=== PATIENT | female | born 1980 | race Caucasian/White ===

== ENCOUNTER 2018-02-13 14:12 | Outpatient (CLI) | payer OTHER | END 2018-02-13 14:15 | disposition home or self-care (01) | LOC: SONOGRAMA 14:12 | DX: Z34.81 Encounter for supervision of other normal pregnancy, first trimester (principal) ==

== ENCOUNTER → 2018-03-13 | Day surgery (SDC) | payer OTHER ==
[~2018-03-13] MED LIST: MULTI VITAMIN1 EACH PO
== END | disposition home or self-care (01) ==
LOC: CIR.AMB 12:05
DX: O02.1 Missed abortion (principal); Z3A.01 Less than 8 weeks gestation of pregnancy

== ENCOUNTER 2019-04-06 20:38 | Outpatient (CLI) | payer OTHER ==
[2019-04-06] MEDS ORDERED: PRENATAL TABLE1 EACH PO (22:47)
[2019-04-06] MEDS ORDERED: INTEGRA CAPSUL1 EACH PO (22:48)
[2019-04-06] MEDS ORDERED: ALDOMET250 MG/5 M PO (22:48)
== END 2019-04-07 13:26 | disposition home or self-care (01) ==
LOC: OBS/DEL 20:38
DX: O16.2 Unspecified maternal hypertension, second trimester (principal)

== ENCOUNTER 2019-08-10 04:58 | Inpatient (IN) | payer OTHER ==
[~2019-08-10] VITALS: Ht 167.6 cm; Wt 92.5 kg
[~2019-08-10 04:58] MED LIST changes: +ALDOMET250 MG/5 M PO; +INTEGRA CAPSUL1 EACH PO; +PRENATAL TABLE1 EACH PO
[2019-08-10] MEDS ORDERED: NIFEDIPINE20 MG PO (08:40)
== END 2019-08-12 14:47 | DRG 785 ==
LOC: LDR 04:58 → O/R 08:25 → SURG-SUITE 12:10
PROVIDERS: ADMIT Specialist
PROC: 0UB60ZZ Excision of Left Fallopian Tube, Open Approach (ICD-10-PCS; 2019-08-10)
PROC: 4A1HXCZ Monitoring of Products of Conception, Cardiac Rate, External Approach (ICD-10-PCS; 2019-08-10)
PROC: 10D00Z1 Extraction of Products of Conception, Low, Open Approach (ICD-10-PCS; principal; 2019-08-10 09:30)
DX: O82 Encounter for cesarean delivery without indication (principal); O34.211 Maternal care for low transverse scar from previous cesarean delivery; Z22.330 Carrier of Group B streptococcus; Z37.0 Single live birth; Z3A.37 37 weeks gestation of pregnancy; Z30.2 Encounter for sterilization